=== PATIENT | female | born 1965 | race Caucasian/White ===

== ENCOUNTER 2019-12-13 00:11 | Inpatient (IN) | payer OTHER ==
[~2019-12-13] VITALS: Ht 167.6 cm; Wt 86.1 kg
[~2019-12-13 00:11] MED LIST: ASCO500 PO; ATEN25; BISA5EC; CETI5 PO; CHLO5 PO; Cephalexin500 MG PO; FERSU300 PO; FISH OIL 1,001000 MG PO; FISH1000 PO; Ferrous Sulfat325 MG PO; Florastor250 MG PO; GABA100 PO; HYDACE5 PO; IBUP800 PO; LISI20 PO; LOVA40; LOVA40 PO; Lisinopril2.5 MG; MELO7.5 PO; METO50 PO; MULTIVITAMINS1 EAC3 PO; MULVITMIND PO; Naprosyn500 MG PO; OMEP40CA12 PO; PARO20 PO; Prinivil10 MG PO; SIMV10 PO; SULTRIDS PO; THIA100 PO; TRAM50 PO; TRILYTE PO; VITAMIN B-1100 MG PO
[2019-12-13] MEDS ORDERED: ATENOLOL25 MG PO (00:25)
[2019-12-13] MEDS ORDERED: AMLODIPINE BES2.5 MG PO (00:25)
[2019-12-13 00:57] LABS: BASOPHILS ABSOLUTE AUTO 0.05 K/mm3 (0.00-0.23); BASOPHILS PERCENT AUTO 1 % (0-2); EOSINOPHILS ABSOLUTE AUTO 0.06 K/mm3 (0.00-0.68); EOSINOPHILS PERCENT AUTO 1 % (0-6); Hematocrit 38.9 % (33.0-51.0); Hemoglobin 12.8 g/dL (11.5-16.0); IMMATURE GRAN ABSOLUTE AUTO 0.05 K/mm3 (0.00-0.10); IMMATURE GRAN PERCENT AUTO 1 % (0-1); LYMPHOCYTES ABSOLUTE AUTO 2.46 K/mm3 (0.84-5.20); LYMPHOCYTES PERCENT AUTO 28 % (21-46); MONOCYTES ABSOLUTE AUTO 0.81 K/mm3 (0.16-1.47); MONOCYTES PERCENT AUTO 9 % (4-13); Mean Corpuscular HGB 35.4 pg (26.0-34.0); Mean Corpuscular HGB Conc 32.9 g/dL (31.5-36.5); Mean Corpuscular Volume 108 fL (80-100); Mean Platelet Volume 11.6 fL (9.1-12.4); NEUTROPHILS ABSOLUTE AUTO 5.37 K/mm3 (1.96-9.15); NEUTROPHILS PERCENT AUTO 61 % (41-73); NRBC ABSOLUTE 0.02 K/mm3 (0.00-0.02); NRBC Auto 0.2 /100 WBC (0.0-0.2); Platelet Count 172 K/mm3 (150-400); RDW Coefficient Variation 13.2 % (11.7-14.2); RDW Standard Deviation 53.2 fL (35.1-46.3); Red Blood Cell Count 3.62 M/mm3 (3.80-5.20)
[2019-12-13 01:10] LABS: Albumin, Blood 4.7 g/dL (3.4-5.0); Albumin/Globulin Ratio 1.2 (0.8-1.8); Bilirubin, Total 0.8 mg/dL (0.1-1.0); Bun/Creatinine Ratio 32.1 (12.0-20.0); Creatinine, Blood 1.37 mg/dL (0.40-1.00); Magnesium, Blood 1.6 mg/dL (1.6-2.4); Potassium, Blood 3.2 mmol/L (3.5-5.5); Total Protein, Blood 8.7 g/dL (6.4-8.2)
[2019-12-13 01:15] LABS: Salicylate <1.7 mg/dL (2.8-20.0)
[2019-12-13 01:17] LABS: Acetaminophen, Random <2.0 ug/mL (10.0-30.0)
[2019-12-13 01:32] LABS: Ethanol (Alcohol), Blood, Med <3 mg/dL
[2019-12-13 01:35] LABS: Source, Urine Clean Catch
[2019-12-13 01:39] LABS: Appearance, Urine Clear (Clear); Blood, Urine 2+ (Neg); Color, Urine Amber (P-Yellow); Glucose Qualitative, Urine Neg (Neg); Ketones, Urine 2+ (Neg); Leukocyte Esterase, Urine 1+ (Neg); Nitrite, Urine Neg (Neg); Protein, Urine 3+ (Neg); Urobilinogen, Urine 2+ (Normal)
[2019-12-13 01:46] LABS: Bilirubin, Urine 2+ (Neg)
[2019-12-13 01:47] LABS: Bacteria Mod /hpf; Mucus Heavy (0-Heavy); Red Blood Cells, Urine 0-2 /hpf (0-2); Squamous Epithelial Cells Few /hpf (Few)
[2019-12-13 01:48] LABS: Amorphous Light (0-Heavy); Hyaline Casts 25-50 /lpf (0-2)
[2019-12-13 01:56] LABS: Beta-hydroxybutyrate 4.4 mg/dL (0.2-2.8); Phosphorus, Blood 2.4 mg/dL (2.5-4.9)
[2019-12-13 01:58] LABS: U Amphetamine Screen Not Detected; U Barbituate Screen Not Detected; U Benzodiazapine Screen DETECTED; U Buprenorphine Screen Not Detected; U Cannabinoids Screen Not Detected; U Cocaine Screen Not Detected; U Methadone Screen Not Detected; U Methamphetamine Screen Not Detected; U Opiates Screen Not Detected; U Oxycodone Screen Not Detected; U Phencyclidine Screen Not Detected; U Propoxyphene Screen Not Detected
[2019-12-13 06:13] LABS: Hematocrit 32.8 % (33.0-51.0); Hemoglobin 11.1 g/dL (11.5-16.0); Mean Corpuscular HGB 35.4 pg (26.0-34.0); Mean Corpuscular HGB Conc 33.8 g/dL (31.5-36.5); Mean Platelet Volume 11.5 fL (9.1-12.4); Platelet Count 118 K/mm3 (150-400); RDW Coefficient Variation 13.5 % (11.7-14.2); RDW Standard Deviation 51.6 fL (35.1-46.3); Red Blood Cell Count 3.14 M/mm3 (3.80-5.20); White Blood Cell Count 5.03 K/mm3 (4.00-11.30)
[2019-12-13 06:18] LABS: Mean Corpuscular Volume 105 fL (80-100)
[2019-12-13 06:26] LABS: Albumin/Globulin Ratio 1.1 (0.8-1.8); Bilirubin, Total 0.7 mg/dL (0.1-1.0); Calcium, Blood 9.3 mg/dL (8.5-10.1); Creatinine, Blood 1.05 mg/dL (0.40-1.00); Globulin, Blood 3.5 g/dL (2.2-4.0); Potassium, Blood 3.7 mmol/L (3.5-5.5); Total Protein, Blood 7.5 g/dL (6.4-8.2)
[2019-12-15 04:35] LABS: Anion Gap 6 mmol/L (6-16); Blood Urea Nitrogen 27 mg/dL (8-24); Bun/Creatinine Ratio 30.6 (12.0-20.0); CO2, Blood 29 mmol/L (21-32); Calcium, Blood 8.6 mg/dL (8.5-10.1); Chloride, Blood 101 mmol/L (98-108); Creatinine, Blood 0.88 mg/dL (0.40-1.00); Glomerular Filtration Rate >60 (60-); Glucose, Blood 99 mg/dL (70-99); Potassium, Blood 3.6 mmol/L (3.5-5.5); Sodium, Blood 136 mmol/L (136-145)
[2019-12-15] MEDS ORDERED: CHLO25 PO (11:25)
[2019-12-15] MEDS ORDERED: CHLORASEPTIC177 ML PO (11:27)
== END 2019-12-15 13:15 | disposition home or self-care (01) | DRG 897 ==
LOC: ER 00:11 → ICUW 03:01 → PCU 03:01 → ICUW 03:15 → PCU 12-14 18:12
PROVIDERS: Emergency Medicine; Internal Medicine; ADMIT Internal Medicine
DX: F10.239 Alcohol dependence with withdrawal, unspecified (principal); N17.9 Acute kidney failure, unspecified; E87.2 Acidosis; I10 Essential (primary) hypertension; E87.6 Hypokalemia; E78.5 Hyperlipidemia, unspecified; F32.9 Major depressive disorder, single episode, unspecified; E86.0 Dehydration; Z87.891 Personal history of nicotine dependence
CPT/HCPCS: 36415; 70450; 80048; 80053; 81001; 82010; 82947; 83735; 83930; 84100; 85025; 85027; 87086; 93005; 93010; 96365; 96366; 96374; 96375; 96376; 99285-25; G0480; J1650; J2060; J3411; J3475; J7030; J7042; P9612

== ENCOUNTER 2021-05-28 06:02 | Emergency (ER) | payer OTHER ==
[~2021-05-28] VITALS: Ht 167.6 cm; Wt 73.9 kg
[~2021-05-28 06:02] MED LIST changes: +AMLODIPINE BES2.5 MG PO; +ATENOLOL25 MG PO; +CHLO25 PO; +CHLORASEPTIC177 ML PO
[2021-05-28 06:45] LABS: BASOPHILS ABSOLUTE AUTO 0.03 K/mm3 (0.00-0.23); BASOPHILS PERCENT AUTO 1 % (0-2); EOSINOPHILS ABSOLUTE AUTO 0.08 K/mm3 (0.00-0.68); EOSINOPHILS PERCENT AUTO 2 % (0-6); Hematocrit 28.9 % (33.0-51.0); Hemoglobin 10.3 g/dL (11.5-16.0); IMMATURE GRAN ABSOLUTE AUTO 0.02 K/mm3 (0.00-0.10); IMMATURE GRAN PERCENT AUTO 1 % (0-1); LYMPHOCYTES ABSOLUTE AUTO 1.17 K/mm3 (0.84-5.20); LYMPHOCYTES PERCENT AUTO 32 % (21-46); MONOCYTES ABSOLUTE AUTO 0.49 K/mm3 (0.16-1.47); MONOCYTES PERCENT AUTO 14 % (4-13); Mean Corpuscular HGB 38.4 pg (26.0-34.0); Mean Corpuscular HGB Conc 35.6 g/dL (31.5-36.5); Mean Corpuscular Volume 108 fL (80-100); NEUTROPHILS ABSOLUTE AUTO 1.83 K/mm3 (1.96-9.15); NEUTROPHILS PERCENT AUTO 51 % (41-73); Platelet Count 113 K/mm3 (150-400); RDW Coefficient Variation 14.3 % (11.7-14.2); RDW Standard Deviation 57.8 fL (35.1-46.3); Red Blood Cell Count 2.68 M/mm3 (3.80-5.20); White Blood Cell Count 3.62 K/mm3 (4.00-11.30)
[2021-05-28 07:00] LABS: Alanine Aminotransfer (ALT/SGP 119 U/L (12-78); Albumin, Blood 3.9 g/dL (3.4-5.0); Albumin/Globulin Ratio 1.1 (0.8-1.8); Alk Phos 102 U/L (50-136); Anion Gap 9 mmol/L (6-16); Aspartate Aminotrans (AST/SGOT 241 U/L (12-37); Bilirubin, Total 0.6 mg/dL (0.1-1.0); Blood Urea Nitrogen 14 mg/dL (8-24); Bun/Creatinine Ratio 21.2 (12.0-20.0); CO2, Blood 28 mmol/L (21-32); Chloride, Blood 102 mmol/L (98-108); Creatinine, Blood 0.66 mg/dL (0.40-1.00); Globulin, Blood 3.7 g/dL (2.2-4.0); Glomerular Filtration Rate >60 (60-); Glucose, Blood 91 mg/dL (70-99); Potassium, Blood 3.4 mmol/L (3.5-5.5); Sodium, Blood 139 mmol/L (136-145); Total Protein, Blood 7.6 g/dL (6.4-8.2)
[2021-05-28] MEDS ORDERED: CHLO25 PO (08:38)
== END 2021-05-28 10:26 | disposition home or self-care (01) ==
LOC: ER 06:02
PROVIDERS: Emergency Medicine
DX: F10.129 Alcohol abuse with intoxication, unspecified (principal); E83.42 Hypomagnesemia; E87.6 Hypokalemia; D64.9 Anemia, unspecified; I10 Essential (primary) hypertension; Y90.8 Blood alcohol level of 240 mg/100 ml or more; Z79.899 Other long term (current) drug therapy
CPT/HCPCS: 36415; 80053; 83735; 85025; 96365; 96375; 99284-25; A9270; G0480; J2060; J3475

== ENCOUNTER 2021-09-03 15:34 | Emergency (ER) | payer OTHER ==
[~2021-09-03] VITALS: Ht 167.6 cm; Wt 71.5 kg
[2021-09-03 16:11] LABS: BASOPHILS ABSOLUTE AUTO 0.06 K/mm3 (0.00-0.23); BASOPHILS PERCENT AUTO 1 % (0-2); EOSINOPHILS ABSOLUTE AUTO 0.06 K/mm3 (0.00-0.68); EOSINOPHILS PERCENT AUTO 1 % (0-6); Hematocrit 32.2 % (33.0-51.0); Hemoglobin 11.6 g/dL (11.5-16.0); IMMATURE GRAN ABSOLUTE AUTO 0.02 K/mm3 (0.00-0.10); IMMATURE GRAN PERCENT AUTO 0 % (0-1); LYMPHOCYTES ABSOLUTE AUTO 0.95 K/mm3 (0.84-5.20); LYMPHOCYTES PERCENT AUTO 18 % (21-46); MONOCYTES ABSOLUTE AUTO 0.42 K/mm3 (0.16-1.47); MONOCYTES PERCENT AUTO 8 % (4-13); Mean Corpuscular HGB 37.9 pg (26.0-34.0); Mean Corpuscular Volume 105 fL (80-100); Mean Platelet Volume 10.8 fL (9.1-12.4); NEUTROPHILS ABSOLUTE AUTO 3.67 K/mm3 (1.96-9.15); NEUTROPHILS PERCENT AUTO 71 % (41-73); Platelet Count 224 K/mm3 (150-400); RDW Coefficient Variation 14.6 % (11.7-14.2); RDW Standard Deviation 57.1 fL (35.1-46.3); Red Blood Cell Count 3.06 M/mm3 (3.80-5.20); White Blood Cell Count 5.18 K/mm3 (4.00-11.30)
[2021-09-03 16:36] LABS: Influenza A, PCR NEGATIVE (NEGATIVE); Influenza B, PCR NEGATIVE (NEGATIVE); Resp Syncytial Virus, PCR NEGATIVE (NEGATIVE); SARS-Cov-2 (COVID-19) PCR, MMC NEGATIVE (NEGATIVE)
[2021-09-03 16:39] LABS: Alanine Aminotransfer (ALT/SGP 99 U/L (12-78); Albumin, Blood 3.9 g/dL (3.4-5.0); Alk Phos 130 U/L (50-136); Anion Gap 11 mmol/L (6-16); Aspartate Aminotrans (AST/SGOT 177 U/L (12-37); Bilirubin, Total 1.2 mg/dL (0.1-1.0); Blood Urea Nitrogen 23 mg/dL (8-24); Bun/Creatinine Ratio 34.6 (12.0-20.0); CO2, Blood 24 mmol/L (21-32); Calcium, Blood 10.5 mg/dL (8.5-10.1); Chloride, Blood 99 mmol/L (98-108); Creatinine, Blood 0.66 mg/dL (0.40-1.00); Globulin, Blood 3.9 g/dL (2.2-4.0); Glomerular Filtration Rate >60 (60-); Glucose, Blood 143 mg/dL (70-99); Potassium, Blood 4.3 mmol/L (3.5-5.5); Sodium, Blood 134 mmol/L (136-145); Total Protein, Blood 7.8 g/dL (6.4-8.2); Troponin I <0.015 ng/mL (0.000-0.040)
[2021-09-03] MEDS ORDERED: Naltrexone HCl50 MG PO (17:32)
[2021-09-03] MEDS ORDERED: Neurontin 300300 MG PO (17:32)
[2021-09-03] MEDS ORDERED: Pepcid40 MG PO (17:32)
== END 2021-09-03 18:02 | disposition home or self-care (01) ==
LOC: ER 15:34
PROVIDERS: Physician Assistant
DX: R07.2 Precordial pain (principal); F10.239 Alcohol dependence with withdrawal, unspecified; I10 Essential (primary) hypertension; F17.210 Nicotine dependence, cigarettes, uncomplicated; Z79.899 Other long term (current) drug therapy; Z20.822 Contact with and (suspected) exposure to COVID-19
CPT/HCPCS: 0241U; 71045; 80053; 83880; 84484; 85025; 93005; 93010; 96365; 96375; 96376; 99285-25; A9270; J2060; J3411; J3475; J7042

== ENCOUNTER 2022-03-15 14:38 | Inpatient (IN) | payer OTHER ==
[~2022-03-15] VITALS: Ht 165.1 cm; Wt 81.3 kg
[~2022-03-15 14:38] MED LIST changes: +Naltrexone HCl50 MG PO; +Neurontin 300300 MG PO; +Pepcid40 MG PO
--- NOTE | 2022-03-15 16:19 | NUR ---
Spiritual Care - Spouse While Pt. was being treated in the ED. Sat with spouse in consult room. Facilitated a family life review and established rapport. Prayed with spouse. Spouse is a man of veronique. Stayed with spouse till Dr. Li (ED Doc) gave the update. Pt. will be moved to ICU. Spouse will wait in ICU lounge.
[2022-03-15 16:20] LABS: Calcium, Ionized (POC) 1.03 mmol/L (1.10-1.46); Chloride (POC) 98 mmol/L (98-108); Creatinine (POC) 1.4 mg/dL (0.6-1.0); Glucose (ISTAT POC) 176 mg/dL (70-99); Hemoglobin (POC) 12.2 g/dL (12.0-16.0); Potassium (POC) 4.2 mmol/L (3.5-5.5); Sodium (POC) 135 mmol/L (135-148); Total CO2 (POC) 24 mmol/L (21-32)
[2022-03-15 16:50] LABS: Hematocrit 27.6 % (33.0-51.0); Hemoglobin 9.3 g/dL (11.5-16.0); Mean Corpuscular HGB 36.6 pg (26.0-34.0); Mean Corpuscular HGB Conc 33.7 g/dL (31.5-36.5); Mean Corpuscular Volume 109 fL (80-100); Mean Platelet Volume 12.3 fL (9.1-12.4); Platelet Count 83 K/mm3 (150-400); RDW Coefficient Variation 14.7 % (11.7-14.2); RDW Standard Deviation 58.2 fL (35.1-46.3); Red Blood Cell Count 2.54 M/mm3 (3.80-5.20); White Blood Cell Count 4.92 K/mm3 (4.00-11.30)
[2022-03-15 17:13] LABS: BAND PERCENT MAN 2 % (0-8); BASOPHILS PERCENT MAN 0 % (0-2); EOSINOPHILS PERCENT MAN 0 % (0-6); LYMPHOCYTES ABSOLUTE MAN 0.39 K/mm3 (0.84-5.20); LYMPHOCYTES PERCENT MAN 8 % (21-46); MONOCYTES ABSOLUTE MAN 0.04 K/mm3 (0.16-1.47); MONOCYTES PERCENT MAN 1 % (4-13); NEUTROPHILS ABSOLUTE MAN 4.47 K/mm3 (1.96-9.15); SEG NEUTROPHILS PERCENT MAN 89 % (41-73); TOTAL CELLS COUNTED 100
[2022-03-15 17:21] LABS: Alanine Aminotransfer (ALT/SGP 80 U/L (12-78); Albumin, Blood 2.8 g/dL (3.4-5.0); Albumin/Globulin Ratio 0.8 (0.8-1.8); Alk Phos 188 U/L (50-136); Anion Gap 11 mmol/L (6-16); Aspartate Aminotrans (AST/SGOT 220 U/L (12-37); Bilirubin, Total 2.2 mg/dL (0.1-1.0); Blood Urea Nitrogen 18 mg/dL (8-24); Bun/Creatinine Ratio 14.2 (12.0-20.0); CO2, Blood 23 mmol/L (21-32); Calcium, Blood 7.5 mg/dL (8.5-10.1); Chloride, Blood 102 mmol/L (98-108); Creatinine, Blood 1.27 mg/dL (0.40-1.00); Ethanol (Alcohol), Blood, Med <3 mg/dL; Globulin, Blood 3.5 g/dL (2.2-4.0); Glomerular Filtration Rate 50 (60-); Glucose, Blood 190 mg/dL (70-99); Potassium, Blood 4.1 mmol/L (3.5-5.5); Sodium, Blood 136 mmol/L (136-145); Total Protein, Blood 6.3 g/dL (6.4-8.2)
[2022-03-15 17:55] LABS: Base Excess Venous -4.6 mmol/L; Bicarbonate Venous 20.9 mmol/L (24.0-30.0); PCO2 Venous 39.1 mmHg (38-42); PO2 Venous 150 mmHg (38-42); pH Blood Venous 7.34 (7.34-7.37)
[2022-03-15 18:41] LABS: Albumin, Blood 3.3 g/dL (3.4-5.0); Albumin/Globulin Ratio 0.8 (0.8-1.8); Bilirubin, Total 2.8 mg/dL (0.1-1.0); Bun/Creatinine Ratio 14.7 (12.0-20.0); Calcium, Blood 8.3 mg/dL (8.5-10.1); Creatinine, Blood 1.29 mg/dL (0.40-1.00); Globulin, Blood 4.1 g/dL (2.2-4.0); Potassium, Blood 4.1 mmol/L (3.5-5.5); Total Protein, Blood 7.4 g/dL (6.4-8.2)
--- NOTE | 2022-03-15 19:23 | NUR ---
SUMMARY- RECIEVED PT FROM ER AT 1650 PT VENTED ON 100% FiO2 AND TITRATED DOWN TO 50%. 60MCG OF PROPOFOL, 10 OF NOREPINEPHRINE, VERSED DRIP INCREASED TO 4MG/HR. GOAL TO HAVE PT HEAVILY SEDATED WITH NO MOVEMENT DUE TO DIFFICULT AIRWAY. PT STILL HAVING NON PURPOSEFUL MOVEMENTS. PUPILS EQUAL AND REACTIVE, PULSES FAINT. SWELLING AROUND FACE AND EYES, TONGUE IS SPLIT DOWN THE MIDDLE FROM UNERSIDE, CONTINUALLY OOZING BLOOD. CRIKE SITE HAD STITCHES REMOMED FROM OUTSIDE DUE TO SUSPECTED AIR LEAK FROM INSIDE OF INCISION CAUSING CREPITUS. SITE IS OOZING BLOOD, ICE PACKS APPLIED TO THE SIDES OF INCISION WITH A FLUFF OVER INCISION. CREPITUS FELT UP TO CHEEK BONES, DOWN TO THIRD INTERCOSTAL SPACE. MONTESINOS IN PLACE, NO UA SENT AT THIS TIME DUE TO INADEQUATE SPECIMEN.
[2022-03-15 22:16] LABS: Hematocrit 22.5 % (33.0-51.0); Hemoglobin 7.9 g/dL (11.5-16.0)
[2022-03-16 04:28] LABS: BASOPHILS PERCENT AUTO 0 % (0-2); EOSINOPHILS PERCENT AUTO 0 % (0-6); Hematocrit 21.5 % (33.0-51.0); Hemoglobin 7.5 g/dL (11.5-16.0); IMMATURE GRAN ABSOLUTE AUTO 0.02 K/mm3 (0.00-0.10); IMMATURE GRAN PERCENT AUTO 0 % (0-1); LYMPHOCYTES ABSOLUTE AUTO 0.45 K/mm3 (0.84-5.20); LYMPHOCYTES PERCENT AUTO 6 % (21-46); MONOCYTES ABSOLUTE AUTO 0.29 K/mm3 (0.16-1.47); MONOCYTES PERCENT AUTO 4 % (4-13); Mean Corpuscular HGB 37.3 pg (26.0-34.0); Mean Corpuscular HGB Conc 34.9 g/dL (31.5-36.5); Mean Corpuscular Volume 107 fL (80-100); Mean Platelet Volume 11.1 fL (9.1-12.4); NEUTROPHILS ABSOLUTE AUTO 6.52 K/mm3 (1.96-9.15); NEUTROPHILS PERCENT AUTO 90 % (41-73); Platelet Count 78 K/mm3 (150-400); RDW Coefficient Variation 14.8 % (11.7-14.2); RDW Standard Deviation 57.7 fL (35.1-46.3); Red Blood Cell Count 2.01 M/mm3 (3.80-5.20); White Blood Cell Count 7.28 K/mm3 (4.00-11.30)
[2022-03-16 04:43] LABS: Albumin/Globulin Ratio 0.9 (0.8-1.8); Bilirubin, Total 2.6 mg/dL (0.1-1.0); Bun/Creatinine Ratio 16.2 (12.0-20.0); Calcium, Blood 8.5 mg/dL (8.5-10.1); Creatinine, Blood 1.54 mg/dL (0.40-1.00); Globulin, Blood 3.3 g/dL (2.2-4.0); Potassium, Blood 3.5 mmol/L (3.5-5.5); Total Protein, Blood 6.3 g/dL (6.4-8.2)
--- NOTE | 2022-03-16 05:01 | NUR ---
PT. IS VENTILATED AND IS STILL SATTING WELL ON 30% O2. BP CAME UP AND I WAS ABLE TO TITRATE OFF THE LEVO AND PRESSURES REMAIN WNL. CRIKE SITE HAS STOPPED BLEEDING AFTER SATURATING 2 DRESSINGS, AND SWELLING AROUND THE SITE HAS GONE DOWN WELL THE SUBQ EMPHASEMA AROUND THE CHEST AND LOWER FACE WELL THE SWELLING IN THE TONGUE. PT. HAS HAD VERY LITTLE URINE OUTPUT, 150 OVERNIGHT, MD AWARE. PT. IS STILL SEDATED ON PROPOFOL AND VERSED AND SEEMS TO BE RESTING COMFORTABLY AT THIS TIME.
--- NOTE | 2022-03-16 05:38 | NUR ---
PT. RINGS WERE SENT HOME LAST NIGHT WITH HER SON VERONA FRANCO. PT. HAD NO OTHER BELONGINGS SEEN IN THE ROOM
--- NOTE | 2022-03-16 07:45 | NUR ---
PT REMAINS INTUBATED, SEDATED, AND RESTRAINED. GRIMACES AND COUGHS WITH NOXIOUS STIMULI, BUT CURRENTLY NOT FOLLOWING COMMANDS. PROPOFOL @ 60 MCG/KG/MIN AND VERSED @ 4 MG/HR. ECG SHOWS SR WITH RATE 80'S. MAP 50'S. LEVOPHED DRIP INITIATED @ 5 MCG/MIN. STAT H&H SENT TITRATING TO MAP 60-65. CRICOID WOUND GENTLY CLEASED WITH SOAP AND WATER AND NONADHERENT DRESSING APPLIED. CREPITUS CONTINUES-UP INTO THE NECK AND CHEEKS. THE CREPITUS HAS RECEDED SOMEWHAT FROM THE DEMARCATED AREA ON THE UPPER CHEST. PT TONGUE IS SWOLLEN AND PROTRUDING FROM THE MOUTH. THERE IS AN ABRASION NOTED TO THE RIGHT SIDE OF THE TONGUE. ORAL CARE PRODUCTIVE OF A MODERATE AMOUNT OF NATHALIE, RED, BLOOD. ETT 7.0/26@LIP. RT MANAGING AIRWAY-PILLOW SLIP CHANGED SOILED WITH BLOOD. PT BOOSTED IN BED, AND REPOSITONED TO (SLIGHT) RIGHT SIDE. PT TOLERATED WELL. LUNGS DIMINISHED TO THE BASES. ETT TO VENT: AC 18, TV 450, PEEP 5, FIO2 30%-SATS>90%. ETT SUCTION PRODUCTIVE OF SMALL AMOUNT OF BLOODY SECRETIONS. PT NPO. NO OGT. BT'S AUSCULTATED X 4. MONTESINOS TO BEDSIDE DRAINAGE WITH 15 CC GILL URINE WITH SEDIMENT. SKIN WITH SCATTERED BRUISING TO UPPER EXTREMITIES. NO NOTED SKIN BREAKDOWN.
[2022-03-16 08:05] LABS: Hematocrit 21.7 % (33.0-51.0); Hemoglobin 7.5 g/dL (11.5-16.0)
--- NOTE | 2022-03-16 11:25 | NUR ---
PT APPEARS RESTLESS. MOVING HER HEAD ABOUT THE PILLOW, PULLING ON RESTRAINTS, AND GRIMACING. MED WITH FENTANYL 50 MCG IVP X 1 AND INCREASED VERSED DRIP TO 5 MG/HR. MAP DROPPED TO 63 AFTER MED FOR PAIN/SEDATION ADJUNCT.LEVOPHED DRIP TITRATED UP TO 3 MCG/MIN. LUNGS COARSE TO UPPER LOBES-ETT SUCTION PRODUCTIVE OF SCANT AMOUNT OF THICK, BLOODY SPUTUM. MONTESINOS CONTINUES WITH SCANT, GILL URINE WITH LOTS OF SEDIMENT. MULTIPLE FAMILY MEMBERS @ BEDSIDE-UPDATED TO PLAN OF CARE. FAMILY WISHES TO SPEAK WITH DR. CORRALES WHEN HE DOES ROUNDS.
--- NOTE | 2022-03-16 12:30 | NUR ---
DR. CORRALES IN TO SEE PT. STAT PORTABLE CXR ORDERED. TOLERATED WELL. DR. CORRALES GAVE THE OK TO BATHE PT, CHANGE LINEN, AND ETT SECUREMENT DEVICE. DURING THAT TIME PT GRIMACING AND COUGHING. PROPOFOL TITRATED UP TO 75 MCG/KG/MIN AND VERSED @ 5 MG/HR. PT INCONTINENT OF LARGE AMOUNT OF BROWN, LIQUID STOOL. WHEN CLEANING PT UP AND CHANGING LINEN, PT NOTED TO HAVE SEIZURE LIKE ACTIVITY. DR. CORRALES MADE AWARE-LORAZEPAM 4 MG IVP X 1 GIVEN-SEE EMAR. NO FURTHER SEIZURE LIKE ACTIVITY NOTED. RECTAL TUBE PLACED PT HAD ADDITIONAL, MODERATE, BROWN, LIQUID STOOL IMMEDIATELY AFTER DRY SMILEY CHANGED. MAP TRENDING 40'S WITH LEVOPHED @ 3 MCG/MIN-TITRATED UP TO 20 MCG/MIN.
--- NOTE | 2022-03-16 12:45 | NUR ---
MAP STILL TRENDING IN THE 50'S. LEVOPHED DRIP TITRATED UP TO 30 MCG/MIN. DR. CORRALES AWARE. PROPOFOL DECREASED TO 20 MCG/KG/MIN AND VERSED DECREASED TO 2 MG/HR. DR. CORRALES UPDATED-H&H HAS BEEN ORDERED.
--- NOTE | 2022-03-16 14:30 | NUR ---
MAP STILL TRENDING 50'S-VASOPRESSIN DRIP INITIATED @ 0.04 UNITS/MIN. LR 1 LITER BOLUS INFUSING. URINE OUTPUT STILL POOR-U/A SENT. TEMP 99.2. HR 90-100'S ST.
[2022-03-16 14:59] LABS: Hemoglobin 6.1 g/dL (11.5-16.0)
[2022-03-16 15:08] LABS: Hematocrit 17.8 % (33.0-51.0)
--- NOTE | 2022-03-16 15:11 | NUR ---
H&H 6.10/01.8-RESULTS TO DR. CORRALES. 2 UNITS PRBC'S ORDERED.
--- NOTE | 2022-03-16 15:45 | NUR ---
MAP STILL TRENDING 50'S. 1ST UNIT PRBC'S INFUSING WITH BLOOD WARMER AND @ 500 CC/HR. LR BOLUS #[address] CORRALES HAS UPDATED FAMILY MULTIPLE TIMES THIS AFTERNOON.
--- NOTE | 2022-03-16 16:30 | NUR ---
PT REMAINS SEDATED, INTUBATED, AND RESTRAINED. PROPOFOL WAS OFF BRIEFLY-APROX 10 MINUTES EARLIER THIS AFTERNOON WHEN PT HYPOTENSIVE. AT THAT TIME, PT OPENED HER EYES, BUT DID NOT TRACK OR FOLLOW COMMANDS. NO FURTHER SEIZURE ACTIVITY NOTED. PROPOFOL @ 20 MCG/KG/MIN AND VERSED @ 2 MG/HR. HR TRENDING 90-110'S. LEVOPHED @ 30 MCG/MIN, VASOPRESSIN @ 0.04 UNITS-MAP TRENDING 60. 2ND UNIT OF PRBC'S COMPLETE. LUNGS COARSE TO UPPER LOBES. NO CHANGE IN APPEARANCE OF CREPITUS. TONGUE REMAINS SWOLLEN AND IS PROTRUDING FROM THE MOUTH, BUT NO CHANGE FROM PREVIOUS ASSESSMENT. ETT TO VENT: AC 14 DECREASED @ APROX 1430, RR 14-18, TV 450, PEEP 5, FIO2 30%-SATS>90% RECTAL TUBE WITH SMALL AMOUNT OF BROWN, LIQUID STOOL. MONTESINOS OUTPUT REMAINS POOR-DR. CORRALES AWARE.
[2022-03-16 16:46] LABS: Source, Urine Foley catheter
[2022-03-16 16:52] LABS: Appearance, Urine Cloudy (Clear); Bilirubin, Urine Neg (Neg); Blood, Urine 3+ (Neg); Color, Urine Amber (P-Yellow); Glucose Qualitative, Urine Neg (Neg); Ketones, Urine Neg (Neg); Leukocyte Esterase, Urine 2+ (Neg); Nitrite, Urine Neg (Neg); Protein, Urine 2+ (Neg); Specific Gravity, Urine 1.015 (1.003-1.022); Urobilinogen, Urine 2+ (Normal)
[2022-03-16 17:15] LABS: Amorphous Light (0-Heavy); Bacteria Many /hpf; Hyaline Casts 0-2 /lpf (0-2); Red Blood Cells, Urine 25-50 /hpf (0-2); Renal Epithelial Few /hpf (0-Rare); Squamous Epithelial Cells Few /hpf (Few)
--- NOTE | 2022-03-16 17:45 | NUR ---
MAP STILL TRENDING 50'S. EPINEPHRINE DRIP INITIATED @ 5MCG/MIN. CALCIUM GLUCONATE [address] CORRALES ORDERS.
[2022-03-16 18:29] LABS: PCO2 Arterial 31.7 mmHg (35-45); PO2 Arterial 71.7 mmHg (80-100)
[2022-03-16 18:30] LABS: pH Blood Arterial 7.29 (7.35-7.45)
--- NOTE | 2022-03-16 18:30 | NUR ---
DR. CORRALES AT BEDSIDE. RIGHT FEMORAL A LINE PLACE-ZEROED AND FLUSHED. STAT ABG, CMP, MG, AND H&H SENT.
[2022-03-16 18:45] LABS: Hematocrit 23.9 % (33.0-51.0); Hemoglobin 8.1 g/dL (11.5-16.0)
--- NOTE | 2022-03-16 19:00 | NUR ---
CRITICAL MAGNESIUM LEVEL 0.[address] CORRALES. MG+ REPLACEMENT ORDERED. REPORT GIVEN TO YASMINE HAM.
[2022-03-16 19:02] LABS: Albumin, Blood 2.3 g/dL (3.4-5.0); Albumin/Globulin Ratio 0.9 (0.8-1.8); Bilirubin, Total 2.5 mg/dL (0.1-1.0); Bun/Creatinine Ratio 12.9 (12.0-20.0); Calcium, Blood 8.1 mg/dL (8.5-10.1); Creatinine, Blood 2.17 mg/dL (0.40-1.00); Globulin, Blood 2.7 g/dL (2.2-4.0); Magnesium, Blood 0.8 mg/dL (1.6-2.4); Potassium, Blood 3.8 mmol/L (3.5-5.5)
--- NOTE | 2022-03-16 21:33 | NUR ---
SHIFT ASSESSMENT ASSUMED CARE OF PT @ 1900, BEDSIDE REPORT RECEIVED FROM YASMINE MCQUEEN. PT INTUBATED AND SEDATED. VENT SETTINGS-14/450/30%/5 c O2 SATS >90%. PROPOFOL GTT INFUSING @ 20MCG/KG/MIN, VERSED @ 2MG/HR, LEVOPHED @ 16MCG/MIN, EPINEPHRINE @ 10MCG/MIN, AND VASOPRESSIN @ 0.04U/MIN. SINUS TACH ON THE NAILHEAD SETTER. LS COARSE T/O, MODERATE AMNT OF BLOODY SECRETIONS SUCTIONED VIA ETT. PTS TONGUE REMAINS SWOLLEN, PROTRUDING FROM MOUTH, SMALL AMNT OF BLOOD SUCTIONED VIA ORAL CAVITY. CREPITUS REMAINS IN UPPER CHEST. ART LINE SITE WNL, ZEROED ART LINE. TEMP PROBE MONTESINOS PATENT, SCANT URINE OUTPUT. RECTAL TUBE IN PLACE, SMALL AMNT OF LOOSE BROWN STOOL DRAINING.
[2022-03-16 22:02] LABS: PCO2 Arterial 29.8 mmHg (35-45); PO2 Arterial 76.5 mmHg (80-100)
[2022-03-16 22:11] LABS: Hematocrit 22.5 % (33.0-51.0); Hemoglobin 7.5 g/dL (11.5-16.0)
[2022-03-17 04:28] LABS: BASOPHILS ABSOLUTE AUTO 0.02 K/mm3 (0.00-0.23); BASOPHILS PERCENT AUTO 0 % (0-2); EOSINOPHILS PERCENT AUTO 0 % (0-6); Hematocrit 22.9 % (33.0-51.0); IMMATURE GRAN ABSOLUTE AUTO 0.15 K/mm3 (0.00-0.10); IMMATURE GRAN PERCENT AUTO 1 % (0-1); LYMPHOCYTES ABSOLUTE AUTO 1.34 K/mm3 (0.84-5.20); LYMPHOCYTES PERCENT AUTO 9 % (21-46); MONOCYTES ABSOLUTE AUTO 0.93 K/mm3 (0.16-1.47); MONOCYTES PERCENT AUTO 6 % (4-13); Mean Corpuscular HGB 32.4 pg (26.0-34.0); Mean Corpuscular HGB Conc 34.9 g/dL (31.5-36.5); Mean Platelet Volume 11.5 fL (9.1-12.4); NEUTROPHILS ABSOLUTE AUTO 12.76 K/mm3 (1.96-9.15); NEUTROPHILS PERCENT AUTO 84 % (41-73); NRBC ABSOLUTE 0.04 K/mm3 (0.00-0.02); NRBC Auto 0.3 /100 WBC (0.0-0.2); Platelet Count 143 K/mm3 (150-400); RDW Coefficient Variation 18.7 % (11.7-14.2); RDW Standard Deviation 62.2 fL (35.1-46.3); Red Blood Cell Count 2.47 M/mm3 (3.80-5.20)
[2022-03-17 04:32] LABS: Mean Corpuscular Volume 93 fL (80-100)
[2022-03-17 04:56] LABS: Bun/Creatinine Ratio 11.5 (12.0-20.0); Calcium, Blood 7.7 mg/dL (8.5-10.1); Creatinine, Blood 2.53 mg/dL (0.40-1.00); Magnesium, Blood 1.8 mg/dL (1.6-2.4); Potassium, Blood 3.2 mmol/L (3.5-5.5)
--- NOTE | 2022-03-17 05:56 | NUR ---
SHIFT SUMMARY PT REMAINS INTUBATED AND SEDATED. PROPOFOL NOW @ 30MCG/KG/MIN, VERSED @ 3MG/HR, LEVOPHED @ 1MCG/MIN, EPINEPHRINE @ 10MCG/MIN AND VASOPRESSIN IS OFF. PT GIVEN 1 UNIT PRBC AND 1 UNIT PLATELETS. 50 MEQ PUSH OF NaHCO3 GIVEN AND 150MEQ GTT INITIATED @ 100ML/HR. AROUND 0300 PT SLOWLY BECAME MORE ALERT, ABLE TO OPEN EYES SPONTANEOUSLY, SQUEEZING BOTH HANDS AND WIGGLING TOES ON COMMAND. PT APPEARED VERY UNCOMFORTABLE HENCE INCREASED SEDATION ALONG WITH 50MCG FENTANYL GIVEN. ANGIOEDEMA IMPROVING. CREPITUS IN UPPER CHEST DIMINISHED. NO OBVIOUS SIGNS OF BLEEDING OTHER THAN SMALL AMNT FROM TONGUE. ETT SECRETIONS DIMINISHED T/O NIGHT. URINE OUTPUT REMAINS DECREASED, 150ML OUT THIS SHIFT.
--- NOTE | 2022-03-17 07:45 | NUR ---
PT REMAINS INTUBATED, SEDATED, AND RESTRAINED. PT OPENS EYES TO VERBAL STIMULI, AND FOLLOWED COMMAND TO "SQUEEZE" BOTH HANDS. PT BECAME AGITATED AND STARTED TO GRIMACE, COUGH, AND PULL ON RESTRAINTS. PROPOFOL DRIP INCREASED TO 35 MCG/KG/MIN. VERSED DRIP @ 3 MG/HR-MED WITH FENTANYL PER CPOT/SEDATION ADJUNCT. TEMP 99.8/ ECG SHOWS ST WITH RATE 100-110'S. PT HAS 3+ GENERALIZED EDEMA. MAP TRENDING 48 WITH EPINEPHRINE DRIP @ 10MCG/MIN (NON STANDARD CONCENTRATION), LEVOPHED @ 1MCG/MIN(QUAD STRENGTH)-LEVOPHED TITRATED UP TO 10 MCG/MIN AND MAP STILL 50'S-RESUMED VASOPRESSIN @ 0.04-TITRATING PRESSORS TO MAP 60-65. LUNGS COARSE TO UPPER LOBES. ETT 7.0/26 @ TEETH. THE TONGUE REMAINS SWOLLEN, BUT IMPROVED FROM 03/16/22 ASSESSMENT AND MINIMAL PROTRUSION FROM THE MOUTH. THE NECK, FACE, AND UPPER CHEST CREPITUS CONTINES, BUT APPEARS IMPROVED FROM YESTERDAY. CRICOID SITE CLEAR-NON ADHERENT DRESSING IS C/D/I. ETT TO VENT: AC 14, RR 22, TV 450, PEEP 5, FIO2 35%-SATS>90%. ETT SUCTION PRODUCTIVE OF SMALL AMOUNT OF THICK, OLD, BLOODY SPUTUM. STILL NO OGT. RECTAL TUBE INTACT WITH SMALL AMOUNT OF BROWN, LIQUID STOOL. MONTESINOS WITH SMALL AMOUNT OF DARK, YELLOW URINE TO BSD. RIGHT HAND IS VERY SWOLLEN FROM RIGHT HAND IV INFILTRATION. THE IV WAS DISCONTINUED DURING NOC SHIFT. RIGHT ARM ELEVATED ON PILLOWS-WILL MONITOR.
--- NOTE | 2022-03-17 08:05 | NUR ---
DR. CORRALES GIVEN FULL UPDATE OVER THE PHONE. CURRENTLY, PT ON PROPOFOL @ 35MCG/MIN, VERSED @ 3 MG/HR. PT IS COUGHING, AND GRIMACING. APPEARS TO BE THRASHING HER HEAD ABOUT THE PILLOW. EPI @ 10 MCG/MIN, LEVOPHED @ 10 MCG/MIN, AND VASOPRESSIN @ 0.04 UNITS/MIN-MAP 65-80. SATS DROPPED TO THE 80'S-ATTEMPTED TO SUCTION, BUT MINIMAL SECRETIONS AT THIS TIME. FIO2 TITRATED UP TO 50%.
--- NOTE | 2022-03-17 08:20 | NUR ---
PT REMAINS AGITATED. SHE IS STILL MOVING HER HEAD ABOUT THE PILLOW-DESPITE PROPOFOL @ 50 MCG/KG/MIN AND VERSED @ 5 MG/HR. MED WITH ATIVAN 2 MG IVP X 1. RT SUMMONED TO BEDSIDE SATS STILL 80'S. ETT RETAPED AND BITE BLOCK ADJUSTED-26 @ TEETH. ONCE PT MEDICATED AND ETT REPOSITIONED, SATS 100%-FIO2 TITRATED BACK DOWN TO 40%. MAP TRENDING 70'S WITH EPI @ 10 MCG/MIN, LEVOPHED @ 5 MCG/MIN, AND VASOPRESSIN @ 0.04 UNITS/MIN.
--- NOTE | 2022-03-17 08:45 | NUR ---
SATS DROPPED TO 50'S FOR NO APPERENT REASON. RT SUMMONED TO BEDSIDE. PT BAGGED X SEVERAL MINUTES UNTIL SATS RETURNED TO THE 90'S-THEN PLACE BACK ON VENT WITH PREVIOUS SETTINGS AND FIO2 50%. MAP TRENDING 40'S. EPI TITRATED UP TO 20 MCG/MIN, LEVOPHED TITRATED UPT TO 15 MCG/MIN, AND VASOPRESSIN @ 0.04 UNITS/MIN. STAT ABG, H&H, RP, MG+, AND LACTIC ACID SENT. TEMP 100.0.
[2022-03-17 08:50] LABS: PCO2 Arterial 29.4 mmHg (35-45); PO2 Arterial 117 mmHg (80-100); pH Blood Arterial 7.42 (7.35-7.45)
--- NOTE | 2022-03-17 09:01 | NUR ---
DR. CORRALES GIVEN ABG RESULTS AND HGB 6.5 ON ABG-LABS STILL PENDING. 2 UNITS ORDERED STAT.
[2022-03-17 09:28] LABS: Hematocrit 19.8 % (33.0-51.0); Hemoglobin 6.9 g/dL (11.5-16.0)
--- NOTE | 2022-03-17 09:30 | NUR ---
DR. CORRALES IN TO SEE PT. FULL UPDATE GIVEN. 1 ST UNIT OF PRBC'S INITIATED. EPT TITRATED UP TO 25 MCG/MIN PER V.O. DR. CORRALES.
[2022-03-17 09:39] LABS: Albumin, Blood 2.2 g/dL (3.4-5.0); Anion Gap 17 mmol/L (6-16); Blood Urea Nitrogen 30 mg/dL (8-24); Bun/Creatinine Ratio 11.4 (12.0-20.0); CO2, Blood 20 mmol/L (21-32); Calcium, Blood 7.3 mg/dL (8.5-10.1); Chloride, Blood 90 mmol/L (98-108); Creatinine, Blood 2.64 mg/dL (0.40-1.00); Glomerular Filtration Rate 21 (60-); Glucose, Blood 233 mg/dL (70-99); Magnesium, Blood 1.9 mg/dL (1.6-2.4); Phosphorus, Blood 5.6 mg/dL (2.5-4.9); Potassium, Blood 4.1 mmol/L (3.5-5.5); Sodium, Blood 127 mmol/L (136-145)
--- NOTE | 2022-03-17 11:00 | NUR ---
2 ND UNIT OF PRBC'S COMPLETE. KETAMINE DRIP INITIATED @ 0.2 MCG/KG/MIN AND SLOWLY TITRATED UP TO 0.4 MCG/KG/MIN-PROPOFOL TITRATED DOWN TO 25 MCG/KG/MIN AND VERSED @ 5 MG/HR.
--- NOTE | 2022-03-17 11:25 | NUR ---
DR. CORRALES AT BEDSIDE. PREP TO TRANSPORT PT TO CT. EPI 1 MG PULLED FOR POSSIBLE EMERGENCY IN CT SCAN AND DEFIB PADS PLACED. DR. GARCÍA AT BEDSIDE BRIEFLY-UPDATE GIVEN AND HE SPOKE WITH DR. CORRALES WELL. RP AND MG+ ORDERED FOR 1200-WILL CALL RESULTS TO RICKY. FIO2 TITRATED UP TO 100% AND LEVOPHED TITRATED UP TO 20 MCG/MIN PER VERBAL ORDER DR. CORRALES.
--- NOTE | 2022-03-17 11:37 | NUR ---
Pastoral care visitation conducted. Pt's family located in waiting area. Initial rapport established and empathic presence extended. Family gathered into the pt's room while prayer and a blessing were extended. Family were appropriately tearful and proceeded to regroup in the waiting area. Assurance of prospective support relayed.
--- NOTE | 2022-03-17 11:45 | NUR ---
PT TRANSPORTED TO CT SCAN. DR. CORRALES, RT, RN X 2, AND SUPERVISOR PROPERTIES @ BEDSIDE.
--- NOTE | 2022-03-17 12:30 | NUR ---
PT REMAINS INTUBATED, SEDATED, AND RESTRAINED. PROPOFOL @ 25 MCG/KG/MIN, VERSED @ 5 MG/HR, AND KETAMINE @ 0.4 MG/KG/HR. TEMP 101.1. BC X1 SENT. HR 140'S ST. MAP TRENDING 50'S WITH LEVOPHED @ 20 MCG/MIN, VASOPRESSIN @ 0.04 UNITS/MIN, AND EPINEPHRINE @ 20 MCG/MIN. MULTIPLE ADDITIONAL UNITS OF BLOOD PRODUCTS HAVE BEEN ORDERED-AWAITING BLOOD/READY SLIPS. LUNGS COARSE THROUGH OUT. SATS>90% ON AC 14, RR 18, TV 450, PEEP 8, FIO2 30%. SUCTION PRODUCTIVE OF MINIMAL, BLOODY SECRETIONS. PT HAS 3+ GENERALIZED EDEMA. URINE OUTPUT REMAINS POOR. VERBAL ORDER GIVEN FROM DR. CORRALES TO *NOT* REPOSITION/TURN PT UNLESS AUTHORIZED BY HIM. DR. CORRALES ATTEMPTING TO FIND BED PLACEMENT/HIGHER LEVEL OF CARE.
--- NOTE | 2022-03-17 12:35 | NUR ---
MESSAGE LEFT WITH DR. JETER ANSWERING SERVICE-PER DR. CORRALES REQUEST. RN @ BEDSIDE HOLDING GENTLY PRESSURE TO RIGHT NECK-PER DR. CORRALES VERBAL ORDER.
[2022-03-17 13:02] LABS: Albumin, Blood 1.9 g/dL (3.4-5.0); Anion Gap 19 mmol/L (6-16); Blood Urea Nitrogen 30 mg/dL (8-24); Bun/Creatinine Ratio 10.6 (12.0-20.0); CO2, Blood 19 mmol/L (21-32); Calcium, Blood 6.9 mg/dL (8.5-10.1); Chloride, Blood 89 mmol/L (98-108); Creatinine, Blood 2.82 mg/dL (0.40-1.00); Glomerular Filtration Rate 19 (60-); Glucose, Blood 210 mg/dL (70-99); Magnesium, Blood 1.8 mg/dL (1.6-2.4); Phosphorus, Blood 7.5 mg/dL (2.5-4.9); Potassium, Blood 3.9 mmol/L (3.5-5.5); Sodium, Blood 127 mmol/L (136-145)
--- NOTE | 2022-03-17 13:13 | NUR ---
DR. CORRALES AT BEDSIDE. LACTIC ACID 5.8-MD AWARE OF RESULTS.
--- NOTE | 2022-03-17 13:16 | NUR ---
MAP TRENDING 50'S-EPINEPHRINE DRIP TITRATED UP TO 30 MCG/MIN.
[2022-03-17 14:57] LABS: SARS-Cov-2 (COVID-19) PCR, MMC NEGATIVE (NEGATIVE)
--- NOTE | 2022-03-17 15:03 | NUR ---
AT APROX 1315 MAP TRENDING 40'S. EPI TITRATED UP TO 30 MCG/MIN, LEVOPHED TITRATED UP TO 20 MCG/MIN, AND VASOPRESSIN CONTINUES @ 0.04 UNITS/MIN. DR. CORRALES SUMMONED TO BEDSIDE. NEOSYNEPHRINE 100 MCG PUSH X 1 GIVEN. MULTIPLE UNITS OF BLOOD PRODUCTS ORDERED. A TOTAL OF 4 PRBC'S, 2 PLT, AND 1 FFP HAVE BEEN GIVEN TODAY. AFTER BLOOD PRODUCTS, HR 120-130'S ST. MAP TRENDING 70'S WITH EPINEPHRINE @ 20 MCG/MIN, LEVOPHED @ 10 MCG/MIN, AND VASOPRESSIN @ 0.04 UNITS/MIN. AT 1445 DR. CORRALES SUMMONED TO BEDSIDE-PT IS RESLESS AND MORE DIFFICULT TO VENTILATE. PROPOL DRIP RESUMED @ 30 MCG/KG/MIN, VERSED CONTINUES @ 5 MG/HR, AND KETAMINE CONTINUES @ 0.5 MG/KG/MIN-ROCURONIUM 80 MG IVP X [address] CORRALES ORDER. PRESSURE IS TO BE CONTINUOUSLY HELD TO RIGHT NECK/CAROTID AREA. MONTESINOS OUTPUT STILL VERY POOR. REPORT CALLED TO TALI RN @ [facility]. THIS RN TO [facility] TO APPLY PRESSURE TO RIGHT NECK.
== END 2022-03-17 15:30 | disposition short-term general hospital (02) | DRG 915 ==
LOC: ER 14:38 → ICUE 16:21 → ICUW 16:21 → ICUE 16:29
PROVIDERS: Emergency Medicine; Family Medicine; Internal Medicine Critical Care Medicine; Internal Medicine Nephrology; ADMIT Internal Medicine
PROC: 0BH17EZ Insertion of Endotracheal Airway into Trachea, Via Natural or Artificial Opening (ICD-10-PCS; principal; 2022-03-15)
PROC: 30233K1 Transfusion of Nonautologous Frozen Plasma into Peripheral Vein, Percutaneous Approach (ICD-10-PCS; 2022-03-15)
PROC: 30233N1 Transfusion of Nonautologous Red Blood Cells into Peripheral Vein, Percutaneous Approach (ICD-10-PCS; 2022-03-15)
PROC: 30233R1 Transfusion of Nonautologous Platelets into Peripheral Vein, Percutaneous Approach (ICD-10-PCS; 2022-03-15)
PROC: 3E033XZ Introduction of Vasopressor into Peripheral Vein, Percutaneous Approach (ICD-10-PCS; 2022-03-15)
PROC: 5A1945Z Respiratory Ventilation, 24-96 Consecutive Hours (ICD-10-PCS; 2022-03-16)
PROC: 03HY32Z Insertion of Monitoring Device into Upper Artery, Percutaneous Approach (ICD-10-PCS; 2022-03-16)
DX: T78.3XXA Angioneurotic edema, initial encounter (principal); J96.01 Acute respiratory failure with hypoxia; N17.0 Acute kidney failure with tubular necrosis; G40.509 Epileptic seizures related to external causes, not intractable, without status epilepticus; F10.239 Alcohol dependence with withdrawal, unspecified; E87.1 Hypo-osmolality and hyponatremia; E87.2 Acidosis; T78.2XXA Anaphylactic shock, unspecified, initial encounter; Z20.822 Contact with and (suspected) exposure to COVID-19; G89.4 Chronic pain syndrome; D53.9 Nutritional anemia, unspecified; D63.1 Anemia in chronic kidney disease; I95.9 Hypotension, unspecified; F41.9 Anxiety disorder, unspecified; I12.9 Hypertensive chronic kidney disease with stage 1 through stage 4 chronic kidney disease, or unspecified chronic kidney disease; L68.0 Hirsutism; E83.51 Hypocalcemia; E87.6 Hypokalemia; N18.9 Chronic kidney disease, unspecified; J45.20 Mild intermittent asthma, uncomplicated; G62.9 Polyneuropathy, unspecified; F32.A Depression, unspecified; F19.10 Other psychoactive substance abuse, uncomplicated; E78.5 Hyperlipidemia, unspecified; Z90.710 Acquired absence of both cervix and uterus; Z98.891 History of uterine scar from previous surgery; Z98.51 Tubal ligation status; Z79.899 Other long term (current) drug therapy; X58.XXXA Exposure to other specified factors, initial encounter
CPT/HCPCS: 31500; 31605; 36415; 36430; 36569; 36620; 51702; 70498; 71045; 71250; 80047; 80048; 80053; 80069; 81001; 82330; 82435; 82803; 83605; 83735; 84100; 84132; 84295; 85014; 85018; 85025; 86160; 86850; 86900; 86901; 86923; 94002; 94003; 94640; 94664; 96365; 96375; 99291-25; 99292; C1751; C1769; C9113; G0480; J0171; J0295; J0610; J0696; J1100; J1200; J1720; J2060; J2250; J2370; J2704; J3010; J3370; J3411; J3475; J3480; J7040; J7050; J7060; J7070; J7120; P9016; P9035; P9059; Q9967; U0004